=== PATIENT | female | born 1990 | race Caucasian/White ===

== ENCOUNTER 2021-06-16 05:12 | Inpatient (IN) | payer MEDICAID, SELFPAY ==
[2021-06-16] VITALS (66 sets, daily range): BP systolic 94–150; BP diastolic 49–93; PULSE 78–123; RESP 15–17; TEMP 36–37.1; O2SAT 90–100; BMI 46.1
[2021-06-16 05:14] LABS: Basophils % 0.2 %; Eosinophils % 0.3 %; Hematocrit 32.8 % (37.0-47.0); Hemoglobin 10.4 g/dL (11.5-15.3); Lymphocytes % 16.1 %; Mean Corpuscular HGB Conc 31.7 g/dL (30.0-36.0); Mean Corpuscular Hemoglobin 26.1 pg (28.0-34.0); Mean Corpuscular Volume 82.4 fl (81-99); Mean Platelet Volume 11.4 fL (7.4-10.4); Monocytes # 0.9 10^3/uL (0.2-0.9); Monocytes % 7.5 %; Neutrophils # 9.49 10^3/uL (1.8-7.7); Neutrophils % 75.5 %; Nucleated Red Blood Cells % 0 %; Platelet Count 292 10^3/cmm (130-400); Red Blood Count 3.98 10^6/uL (4.1-5.3); Red Cell Distribution Width 13.6 % (12.1-15.1); White Blood Count 12.6 10^3/uL (4.0-10.0)
[2021-06-16] MEDS: lactated ringers 1,000 ML 999 ML IV (05:22)
[2021-06-16 05:24] LABS: Amphetamines Screen Urine Negative (Negative); Barbiturates Screen Urine Negative (Negative); Benzodiazepines Screen Urine Negative (Negative); Cocaine Screen Urine Negative (Negative); Opiate Screen Urine Negative (Negative); PCP Screen Urine Negative (Negative); THC Screen Urine Negative (Negative)
[2021-06-16 05:30] LABS: Actim Prom Positive
[2021-06-16] MEDS: fentaNYL 50 mcg/mL INJ 2mL IVP (05:53)
--- NOTE | 2021-06-16 07:13 | P.ANESASSM_ITS ---
Pre-Anesthetic Assessment Pre-Anesthetic Assessment: Height/Weight: Height 1.68 m Weight 129.727 kg Temp Pulse Resp BP Pulse Ox 97.3 F L 84 15 117/60 100 06/16/21 04:13 06/16/21 07:11 06/16/21 05:53 06/16/21 07:11 06/16/21 07:09 Preop Diagnosis: IUP Proposed Procedure: epidural Familial anesthetic complications: None Social: Social History: No alcohol and No tobacco Exam: Pre-Anes Outpt Exam: alert, oriented x 3, clear to auscultation bilaterally and regular rate & rhythm Airway: Cervical ROM: WNL MP: 3 Dentition: Chipped Metabolic: Metabolic: Morbid obesity Anesthetic Plan: ASA status: 3 Anesthesia: Regional (specify below) Risk of > 500 ml blood loss (7ml/kg in children): No Meds/Allergies Current Medications: Current Medications Generic Name Dose Route Start Last Admin Trade Name Freq PRN Reason Stop Dose Admin Fentanyl 25 - 100 mcg 06/16/21 05:03 06/16/21 05:53 Fentanyl 50 Mcg/ Ml Inj 2ml IVP 25 mcg Q1H PRN Administration SEVERE PAIN Lactated Ringer's 1,000 mls @ 999 m ls/hr 06/16/21 05:06 06/16/21 05:22 Lactated Ringers IV 999 mls/hr .Q1H1M PRN Administration See label comment s PFSH Anesthesia Female Reproductive History: : 4 Data Anesthesia CBC & Chem 7: 06/16/21 04:58 Other Labs: Laboratory Results - last 48 hr 06/16/21 06/16/21 06/16/21 04:37 04:58 04:58 WBC 12.6 H RBC 3.98 L Hgb 10.4 L Hct 32.8 L MCV 82.4 MCH 26.1 L MCHC 31.7 RDW 13.6 Plt Count 292 MPV 11.4 H Neut % (Auto) 75.5 Lymph % (Auto) 16.1 [place] % (Auto) 7.5 Eos % (Auto) 0.3 Baso % (Auto) 0.2 Neut # (Auto) 9.49 H Lymph # (Auto) 2.0 [place] # (Auto) 0.9 Eos # (Auto) 0.0 Baso # (Auto) 0.0 Nucleated RBC % (auto) 0 Nucleated RBCs # 0.0 Insulin-like GF I Positive Urine Opiates Screen Negative Ur Barbiturates Screen Negative Ur Phencyclidine Scrn Negative Ur Amphetamines Screen Negative U Benzodiazepines Scrn Negative Urine Cocaine Screen Negative U Marijuana (THC) Screen Negative Cardiac Studies: No Data to Display
--- NOTE | 2021-06-16 07:14 | ANES.PROC ---
Anesthesia Procedures Procedure/Date: 06/16/21 Epidural: Time Out Performed: Yes Consents Signed: Procedure Consent, NPO Consent and No Consent Needed Consent: requested by attending/covering physician, from patient, risks and benefits reviewed and patient agrees to proceed Lumbar Level: L3-L4 Epidural position: sitting Epidural procedure: sterile prep of area, 1% lidocaine to numb the area, 18 g needle, negative for paresthesia passed, neg for paresthesia, test dose given, 1.5% xylocaine 1:200k epi (5), 0.2% Ropivacaine bolus ml (5), placed PCEA, no systemic response, sterile dressing applied, L.U.D. no apparent complications and 0.2% Ropiavacaine @ mls/hr (13) Additional Comments: JEREMY at 9 cm, pain in hip with threading of catheter. Threaded to 14 cm. No pain with injection. Contraction Pain decreased from 10/10 to 4/10 with first post-epidural contraction. L leg heavier and number than R, still feeling some pressure in RLQ, but states very maneagable.
[2021-06-16] MEDS: dextrose 5%-lactated ringers 1,000 ML 125 ML IV (07:47)
[2021-06-16] MEDS: oxytocin 30 UNIT/500 ML BAG 600 UNIT IV (08:41)
--- NOTE | 2021-06-16 09:04 | PM.OPHPUD ---
Labor & Delivery H&P Update Date of Procedure: June 16, 2021 Date H&P Performed: 06/15/21 H&P update information: I have reviewed H&P completed within last 30 days, I have examined patient prior to procedure and Changes to prior documentation as noted here Changes to previous documentation: Cervix is 3 cm. Admission Diagnosis: Preop diagnosis: IUP Related Problem List Diagnoses (1) 38 weeks gestation of : (2) Vaginal bleeding: (3) Active labor at term:
--- NOTE | 2021-06-16 09:06 | PM.DELIVERY ---
Delivery Note: Date of delivery: June 16, 2021 Pre-delivery diagnoses: 1. 30-year-old 4 para 2-0-1-2 at 38 weeks and 4 days estimated gestational age 2. Vaginal bleeding 3. Active labor Post-delivery diagnoses: Status post spontaneous vaginal delivery Op report anesthesia: Epidural Estimated blood loss (mL): 100 Pre-Delivery Course: The patient arrived at the hospital the morning of delivery complaining of vaginal bleeding and contractions. Upon arrival at the hospital she was noted to have some spotting. Her cervix was noted to be making change. An epidural was placed. An amniotomy was performed. The patient progressed to complete without difficulty. Her been remarkable for moving from [place] and transferring to [facility] at the beginning of the third trimester. She is rubella nonimmune her GBS status is negative. She failed her 1 hour glucose test but passed her 3-hour glucose test. Her blood type was O+. The remainder of her labs were within normal limits. Delivery: DELIVERY: The patient progressed to complete without difficulty. She delivered a female with a weight of 7 pounds 5 ounces with Apgars of 9, 9. The baby was delivered from the MIL position and placed on the mother's abdomen. The cord was then clamped and cut 1 minute after delivery. There was no nuchal cord. There was no meconium. The placenta and 3 vessel cord were delivered intact shortly thereafter. The perineum and vaginal vault were carefully examined. No lacerations were noted. Both the mother and the baby were in stable condition. 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
[2021-06-16] MEDS: lanolin oint 7 gm 1 APPLIC TOPICAL (09:50)
[2021-06-16] MEDS: ibuprofen 800 mg tablet PO ×3 (09:50→21:02)
[2021-06-16] MEDS: benzocaine-menthol 78 gm Canister 1 SPRAY TOPICAL (09:50)
[2021-06-16] MEDS: escitalopram 10 mg Tablet PO (12:39)
[2021-06-16] MEDS: docusate sodium 100 mg Capsule PO (18:00)
[2021-06-16 21:16] LABS: Hematocrit 28.6 % (37.0-47.0); Hemoglobin 9.1 g/dL (11.5-15.3); Mean Corpuscular HGB Conc 31.8 g/dL (30.0-36.0); Mean Corpuscular Hemoglobin 26.1 pg (28.0-34.0); Mean Corpuscular Volume 81.9 fl (81-99); Mean Platelet Volume 11.2 fL (7.4-10.4); Platelet Count 246 10^3/cmm (130-400); Red Blood Count 3.49 10^6/uL (4.1-5.3); Red Cell Distribution Width 13.5 % (12.1-15.1); White Blood Count 10.3 10^3/uL (4.0-10.0)
[2021-06-17 03:18] VITALS: BP 132/87; PULSE 84; RESP 16; TEMP 36.9; O2SAT 98
--- NOTE | 2021-06-17 07:49 | ANE.PACU2 ---
Inpatient post-anesthesia follow up: Airway intact: Yes Vital signs: Temperature 98.5 F Pulse Rate 84 Respiratory Rate 16 Blood Pressure 132/87 Pulse Oximetry 98 Oxygen Delivery Me thod Room Air Oxygen Flow Rate Fraction of Inspir ed Oxygen Hydration adequate: Yes Nausea and vomiting: No Pain level: 2 Mental status: Baseline
--- NOTE | 2021-06-17 09:40 | PM.OBGYDC ---
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 She was found to be in active labor. An epidural was placed. She progressed to complete and had an unremarkable delivery of a healthy appearing term female infant. Her course was also relatively unremarkable. Initially she breast-fed well. During the night, her infant was irritable, and she elected to change to bottlefeeding. Her pain was well controlled. She was noted to have a productive cough with green mucus. She also did have a infected tooth as well. Otherwise her bleeding was within normal limits. Her pain was well controlled. Information Peripartum Data: Infant Delivery Method: Vaginal Physical Exam Narrative: EXAM NARRATIVE: The patient is alert. She appears comfortable. Her heart has a regular rate and rhythm with no murmurs appreciated. Lungs are clear to auscultation bilaterally. Her fundus is firm and below the umbilicus. Urinary Catheter Management^: [place]: Cath Placed During This Visit: yes, but has since been removed by the nurse Reason for Continuing Indwelling Catheter: Required Immobilization for Trauma or Surgery or Anesthesia Urinary Catheter Date of Insertion: 06/16/21 Urinary Catheter Time of Insertion: 07:35 Date Urinary Catheter Removed: 06/16/21 Time Urinary Catheter Discontinued: 07:50 Discharge Data Data Completed and Pending: Labs from last 24 hours 06/16/21 21:07 WBC 10.3 H RBC 3.49 L Hgb 9.1 L Hct 28.6 L MCV 81.9 MCH 26.1 L MCHC 31.8 RDW 13.5 Plt Count 246 MPV 11.2 H Vitals: Last Vital Signs Temp 98.5 F 06/17/21 03:18 Pulse 84 06/17/21 03:18 Resp 16 06/17/21 03:18 BP 132/87 06/17/21 03:18 Pulse Ox 98 06/17/21 03:18 Discharge Plan Discharge Patient Disposition: Home Condition: Stable Prescriptions: New ibuprofen 800 mg Tablet 800 mg PO TID Qty: 45 RF: 0 hydrocodone-acetaminophen 5-325 mg Tablet 1 tab PO BID PRN (Reason: Moderate To Severe Pain) Qty: 10 RF: 0 amoxicillin-pot clavulanate 1,000-62.5 mg tablet extended release 12 hr 1 tab PO BID Qty: 20 RF: 0 Continued Celexa 10 mg Tablet 10 mg PO DAILY RF: 0 Discontinued 1 mg Tablet 1 tab PO DAILY RF: 0 ibuprofen 200 mg PO PRN PRN (Reason: Pain) RF: 0 Discharge Orders: Discharge Order (Routine); Ordered 06/17/21 Ordered By: Rome Garcia Referrals: Griffin Marquez MD [Physician] - 2 weeks (laparoscopic tubal ligation consult) Rome Garcia MD [Physician] - 6 Weeks Discharge Diet: Usual diet Discharge Activity: Limit activity as instructed Patient Instructions: Iron Supplements (By mouth), Vitamins (By mouth), Lanolin (On the skin), Expression, Collection and Storage of Breast Milk (DC), and Nipple Soreness (DC), and Breast Engorgement (GEN), How to Increase Your Milk Supply (GEN), Bleeding (GEN), Breast Care for the Mother (GEN), OB Discharge Report, OB Food/Drug Interaction Guide, Opioid Safety, OB Home Care, OB Vaginal Deliveries, Abnormal Bleeding Discharge 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
[2021-06-17] MEDS: docusate sodium 100 mg Capsule PO (10:20)
[2021-06-17] MEDS: prenatal vitamin Capsule 1 CAP PO (10:20)
[2021-06-17] MEDS: ibuprofen 800 mg tablet PO (10:20)
[2021-06-17 13:40] VITALS: BP 133/90; PULSE 83; RESP 16; TEMP 36.9; O2SAT 96
[2021-06-17 14:02] VITALS: BP 133/90; PULSE 83; RESP 16; TEMP 36.9; O2SAT 96
== END 2021-06-17 14:00 | disposition home or self-care (01) | DRG 807 ==
LOC: OPOB 05:14 → OBGYN 05:14
PROVIDERS: Admitting Provider Family Medicine; Visit Provider Family Medicine
DX: O99.52 Diseases of the respiratory system complicating childbirth (principal); Z37.0 Single live birth; J06.9 Acute upper respiratory infection, unspecified; Z3A.38 38 weeks gestation of pregnancy; O99.892 Other specified diseases and conditions complicating childbirth; K08.89 Other specified disorders of teeth and supporting structures
CPT/HCPCS: 12345; 36415; 51702; 59025; 59409; 80306; 84112; 85025; 85027; 96374; 99211; J2795; J3010

== ENCOUNTER 2021-11-19 23:44 | Emergency (ER) | payer MEDICAID, SELFPAY ==
[2021-11-19 23:53] VITALS: PULSE 115; RESP 18; TEMP 36.9; O2SAT 98; BMI 45.1
--- NOTE | 2021-11-20 00:29 | W.ED.NAVMDI ---
Documented by User: NELL Jason 11/20/21 15:22 HPI - Nausea/Vomiting/Diarrhea General: Chief complaint: Abdominal Pain Stated complaint: ABD PAIN Time Seen by Provider: 11/20/21 00:01 History of Present Illness: Patient is a 30-year-old female that is approximately 9 weeks gestation comes to the ED with nausea vomiting diarrhea. Symptoms started couple hours before arrival to ED. Patient says she ate dinner at 6 PM and symptoms occurred couple hours after that. Her and child ate same meal and did not have any symptoms afterwards. She has had multiple episodes of emesis and diarrhea since start of symptoms a couple hours ago. She also reports having some periumbilical and right side and RUQ. Denies any fevers. denies any dysuria, hematuria, discharge or vaginal bleeding. Patient still has gallbladder and appendix. Associated nausea: Yes Associated symtoms: Reports nausea; Denies change in vision, chest pain, dysuria, fatigue, headache(s) or palpitations Review of Systems Const: Denies: fever(s), chills or fatigue Eyes: Denies: change in vision or eye discomfort ENMT: Denies: throat pain, odynophagia, nasal discharge or nasal congestion Card: Denies: chest pain, palpitations, edema, swelling of feet/ankles, dyspnea on exertion or orthopnea Resp: Denies: dyspnea, productive cough or non-productive cough GI: Reports: abdominal pain, nausea, vomiting and diarrhea; Denies: constipation or hematochezia : Denies: flank pain, dysuria, hematuria, vaginal bleeding or vaginal discharge Musc: Denies: neck pain, back pain or extremity swelling Skin/Breast: Denies: rash or new lesions Neuro: Denies: headache(s), numbness in extremities or weakness in extremities PFS ED PFSH: Medical History No pertinent family history No pertinent past medical history Physical Exam Const: COMMON NORMALS: patient oriented x3 and alert GENERAL APPEARANCE: cooperative NUTRITIONAL APPEARANCE: obese HENMT: COMMON NORMALS: normocephalic HEAD & SCALP: normocephalic MOUTH: Normal oral and palatal mucosa present THROAT: posterior oropharynx normal and uvula midline Neck/C-Spine: COMMON NORMALS: supple GENERAL: Yes normal visual inspection Resp: COMMON NORMALS: normal respiratory effort, No retractions, No use of accessory muscles and clear to auscultation bilaterally AUSCULTATION: clear to auscultation bilaterally Cardio: COMMON NORMALS: regular rate, regular rhythm, S1 normal heart sound present, S2 normal heart sound present, No gallops present (Cardio), No clicks present (Cardio), No murmurs present (Cardio) and Peripheral pulses 2+ throughout RATE: regular rate RHYTHM: regular rhythm HEART SOUNDS: S1 normal heart sound present and S2 normal heart sound present PERIPHERAL PULSES: Peripheral pulses 2+ throughout GI: COMMON NORMALS: Normal to inspection, nondistended, normoactive bowel sounds present, Soft to palpation and no masses PALPATION: Yes Soft to palpation and Yes Tenderness to palpation present (GI) Details: RUQ and other (periumbilical/epigastric) : COMMON NORMALS: Yes no CVA tenderness BLADDER/KIDNEY EXAM: Yes no CVA tenderness Back/Pelvis: COMMON NORMALS: no CVA tenderness Extremity: COMMON NORMALS: normal to inspection and no pedal edema Neuro: COMMON NORMALS: patient oriented x3 SENSORIUM/ORIENTATION: Yes alert GAIT: Yes Normal gait present Skin: GENERAL SKIN EXAM: dry skin Course Vital Signs: Vital signs: Vital Signs Temperature 98.4 F 11/19/21 23:53 Pulse Rate 97 11/20/21 05:12 Respiratory Rate 16 11/20/21 05:12 Blood Pressure 165/59 11/20/21 05:12 Pulse Oximetry 97 11/20/21 05:12 MDM - Nausea/Vomiting/Diarrhea Medical Decision Making Patient is a 9 weeks 30-year-old female comes to the ED with cute onset of nausea, vomiting, diarrhea and abdominal pain. Abdominal pain located in the periumbilical and right upper quadrant of the abdomen. Symptoms started couple hours prior to arrival. Denies any fever, dysuria, hematuria, vaginal bleeding or vaginal discharge. Vitals are stable patient is afebrile. Exam of patient shows some right upper quadrant tenderness along with periumbilical tenderness. White blood cell count 18 and the rest of CBC, CMP, lipase and UA were unremarkable. hCG quant 71,502. OB ultrasound showed single living intrauterine fetus measuring at 8 weeks no other acute findings. Patient was given 2 L of IV fluids nausea meds and her symptoms were improved and controlled here in the ED. At the end of my shift a handed patient off to Dr. Narvaez. I told him about patient case and that I have an ultrasound of the gallbladder ordered and pending results. Dr. Narvaez took over care of pt at 0330 and will make decision on discharge plan of patient after ultrasound gallbladder report comes back. Lab Data I reviewed the patient's lab results. : 11/20/21 00:10 11/20/21 00:10 Radiology Impressions Ultrasound 11/20/21 00:33 IMPRESSION: 1. Single living intrauterine fetus, 8 weeks, 4 days estimated age. 2. Other details discussed above. Gallbladder Ultrasound 11/20/21 02:49 IMPRESSION: 1. No cholelithiasis or biliary tree dilation. 2. Other findings discussed above. Laboratory Results WBC 18.0 10^3/uL (4.0-10.0) H 11/20/21 00:10 RBC 5.13 10^6/uL (4.1-5.3) 11/20/21 00:10 Hgb 13.6 g/dL (11.5-15.3) 11/20/21 00:10 Hct 41.3 % (37.0-47.0) 11/20/21 00:10 MCV 80.5 fl (81-99) L 11/20/21 00:10 MCH 26.5 pg (28.0-34.0) L 11/20/21 00:10 MCHC 32.9 g/dL (30.0-36.0) 11/20/21 00:10 RDW 14.1 % (12.1-15.1) 11/20/21 00:10 Plt Count 485 10^3/cmm (130-400) H 11/20/21 00:10 MPV 10.4 fL (7.4-10.4) 11/20/21 00:10 Neut % (Auto) 85.3 % 11/20/21 00:10 Lymph % (Auto) 7.6 % 11/20/21 00:10 Harding % (Auto) 6.3 % 11/20/21 00:10 Eos % (Auto) 0.2 % 11/20/21 00:10 Baso % (Auto) 0.2 % 11/20/21 00:10 Neut # (Auto) 15.39 10^3/uL (1.8-7.7) H 11/20/21 00:10 Lymph # (Auto) 1.4 10^3/uL (0.8-4.8) 11/20/21 00:10 [place] # (Auto) 1.1 10^3/uL (0.2-0.9) H 11/20/21 00:10 Eos # (Auto) 0.0 10^3/uL (0.0-0.8) 11/20/21 00:10 Baso # (Auto) 0.0 10^3/uL (0.0-0.1) 11/20/21 00:10 Nucleated RBC % (auto) 0 % 11/20/21 00:10 Nucleated RBCs # 0.0 /100WBC 11/20/21 00:10 Sodium 134 mmol/L (136-145) L 11/20/21 00:10 Potassium 4.2 mmol/L (3.5-5.1) 11/20/21 00:10 Chloride 100 mmol/L (98-107) 11/20/21 00:10 Carbon Dioxide 20 mmol/L (22-29) L 11/20/21 00:10 Anion Gap 18.2 (5-19) 11/20/21 00:10 BUN 11 mg/dL (6-20) 11/20/21 00:10 Creatinine 0.8 mg/dL (0.5-0.9) 11/20/21 00:10 GFR Calculation 84.8 mL/min (90-130) L 11/20/21 00:10 Glucose 146 mg/dL (65-115) H 11/20/21 00:10 Calculated Osmolality 280 mOsm/kg (285-295) L 11/20/21 00:10 Calcium 8.7 mg/dL (8.5-10.5) 11/20/21 00:10 Total Bilirubin 0.3 mg/dL (0.15-1.2) 11/20/21 00:10 AST 19 U/L (0-32) 11/20/21 00:10 ALT 9 U/L (0-33) 11/20/21 00:10 Alkaline Phosphatase 94 IU/L (35-105) 11/20/21 00:10 Total Protein 7.6 g/dL (6.6-8.7) 11/20/21 00:10 Albumin 4.3 g/dL (3.5-5.2) 11/20/21 00:10 Globulin 3.3 g/dL (1.3-4.6) 11/20/21 00:10 Lipase 38 U/L (13-60) 11/20/21 00:10 Ser , Semi-Qnt 85722.00 mIU/mL 11/20/21 00:10 Urine Color Yellow (Yellow) 11/20/21 00:10 Urine Appearance Hazy (CLEAR) A 11/20/21 00:10 Urine pH 5 (5-7) 11/20/21 00:10 Ur Specific [place] 1.025 (1.005-1.030) 11/20/21 00:10 Urine Protein Neg (Negative) 11/20/21 00:10 Urine Glucose (UA) Norm (Normal) 11/20/21 00:10 Urine Ketones Negative (Negative) 11/20/21 00:10 Urine Blood Neg (Negative) 11/20/21 00:10 Urine Nitrate Negative (Negative) 11/20/21 00:10 Urine Bilirubin 1+ (Negative) H 11/20/21 00:10 Urine Urobilinogen Norm mg/dL (Negative) 11/20/21 00:10 Ur Leukocyte Esterase 1+ (Negative) H 11/20/21 00:10 Urine RBC 0-4 /hpf (0-2) H 11/20/21 00:10 Urine WBC 15-25 /hpf (0-5) H 11/20/21 00:10 Ur Squamous Epith Cells 25-40 /hpf (0-5) H 11/20/21 00:10 Amorphous Sediment Not Reportable 11/20/21 00:10 Urine Bacteria 2+ /hpf (NONE) H 11/20/21 00:10 Urine Mucus 2+ /hpf 11/20/21 00:10 Discharge Plan Discharge Patient Disposition: Home Clinical Impression: Abdominal pain affecting , Nausea vomiting and diarrhea, Leukocytosis, Dehydration Condition: Stable Prescriptions: New pyridoxine (vitamin B6) 25 mg tablet 25 mg PO TID Qty: 30 0RF doxylamine succinate 25 mg tablet 25 mg PO Q8H PRN (Reason: nausea and vomiting) Qty: 30 0RF metoclopramide HCl 10 mg tablet,disintegrating 10 mg PO TID PRN (Reason: nausea and vomiting) Qty: 14 0RF No Action Celexa 10 mg Tablet 10 mg PO DAILY 0RF ibuprofen 800 mg Tablet 800 mg PO TID Qty: 45 0RF hydrocodone-acetaminophen 5-325 mg Tablet 1 tab PO BID PRN (Reason: Moderate To Severe Pain) Qty: 10 0RF amoxicillin-pot clavulanate 1,000-62.5 mg tablet extended release 12 hr 1 tab PO BID Qty: 20 0RF Discharge Orders: Discharge ED (Routine); Ordered 11/20/21 Ordered By: Meño Narvaez Discharge Diet: Advance as tolerated and Clear Liquid Discharge Activity: Increase activity as tolerated Patient Instructions: Nausea and Vomiting in (ED), Abdominal Pain (ED) Activity Restrictions/Additional Instructions: Thank you for visiting the emergency department. You were seen and evaluated for abdominal pain with nausea and vomiting and diarrhea during . The exact cause of your symptoms is unclear. Please follow-up with your primary care provider and inbound call center representative in the next few days. I recommend repeat urinalysis by your inbound call center representative as there was squamous epithelial cell contamination which voids ability to interpret your urinalysis here. Please return to the emergency department for worsening symptoms or anything else that you are concerned about and feel needs emergency department evaluation. Sign Out Sign Out Data: Patient Sign Out occurred on 11/20/21 at 03:37. Patient's care was discussed, and care was transferred from to Meño Narvaez MD. Coding Level of Care Code ED Drying Equipment Operator for Chg Fwd Exam Comprehensive Documented by User: Meño Narvaez MD 11/25/21 02:53 HPI - Nausea/Vomiting/Diarrhea General: Chief complaint: Abdominal Pain Stated complaint: ABD PAIN Time Seen by Provider: 11/20/21 00:01 REPLACED BY [facility] ED PFSH: Medical History No pertinent family history No pertinent past medical history Course Vital Signs: Vital signs: Vital Signs Temperature 98.4 F 11/19/21 23:53 Pulse Rate 97 11/20/21 05:12 Respiratory Rate 16 11/20/21 05:12 Blood Pressure 165/59 11/20/21 05:12 Pulse Oximetry 97 11/20/21 05:12 MDM - Nausea/Vomiting/Diarrhea Medical Decision Making Patient is a 9 weeks 30-year-old female comes to the ED with cute onset of nausea, vomiting, diarrhea and abdominal pain. Abdominal pain located in the periumbilical and right upper quadrant of the abdomen. Symptoms started couple hours prior to arrival. Denies any fever, dysuria, hematuria, vaginal bleeding or vaginal discharge. Vitals are stable patient is afebrile. Exam of patient shows some right upper quadrant tenderness along with periumbilical tenderness. White blood cell count 18 and the rest of CBC, CMP, lipase and UA were unremarkable. hCG quant 71,502. OB ultrasound showed single living intrauterine fetus measuring at 8 weeks no other acute findings. Patient was given 2 L of IV fluids nausea meds and her symptoms were improved and controlled here in the ED. At the end of my shift a handed patient off to Dr. Narvaez. I told him about patient case and that I have an ultrasound of the gallbladder ordered and pending results. Dr. Narvaez took over care of pt at 0330 and will make decision on discharge plan of patient after ultrasound gallbladder report comes back. I discussed this case with NELL Jason. I personally saw and evaluated the patient. I reperformed herndon portions of E/M. I have reviewed documentation. I discussed results of ED evaluation with the patient including offering further imaging with MRI versus close watching with strict return precautions and outpatient follow-up. Patient comfortable foregoing MRI at this time in favor of outpatient follow-up. Return precautions given. Patient verbalized understanding and felt safe for discharge. Meño Narvaez MD Emergency Medicine Lab Data : 11/20/21 00:10 11/20/21 00:10 Radiology Impressions Ultrasound 11/20/21 00:33 IMPRESSION: 1. Single living intrauterine fetus, 8 weeks, 4 days estimated age. 2. Other details discussed above. Gallbladder Ultrasound 11/20/21 02:49 IMPRESSION: 1. No cholelithiasis or biliary tree dilation. 2. Other findings discussed above. Laboratory Results WBC 18.0 10^3/uL (4.0-10.0) H 11/20/21 00:10 RBC 5.13 10^6/uL (4.1-5.3) 11/20/21 00:10 Hgb 13.6 g/dL (11.5-15.3) 11/20/21 00:10 Hct 41.3 % (37.0-47.0) 11/20/21 00:10 MCV 80.5 fl (81-99) L 11/20/21 00:10 MCH 26.5 pg (28.0-34.0) L 11/20/21 00:10 MCHC 32.9 g/dL (30.0-36.0) 11/20/21 00:10 RDW 14.1 % (12.1-15.1) 11/20/21 00:10 Plt Count 485 10^3/cmm (130-400) H 11/20/21 00:10 MPV 10.4 fL (7.4-10.4) 11/20/21 00:10 Neut % (Auto) 85.3 % 11/20/21 00:10 Lymph % (Auto) 7.6 % 11/20/21 00:10 Harding % (Auto) 6.3 % 11/20/21 00:10 Eos % (Auto) 0.2 % 11/20/21 00:10 Baso % (Auto) 0.2 % 11/20/21 00:10 Neut # (Auto) 15.39 10^3/uL (1.8-7.7) H 11/20/21 00:10 Lymph # (Auto) 1.4 10^3/uL (0.8-4.8) 11/20/21 00:10 [place] # (Auto) 1.1 10^3/uL (0.2-0.9) H 11/20/21 00:10 Eos # (Auto) 0.0 10^3/uL (0.0-0.8) 11/20/21 00:10 Baso # (Auto) 0.0 10^3/uL (0.0-0.1) 11/20/21 00:10 Nucleated RBC % (auto) 0 % 11/20/21 00:10 Nucleated RBCs # 0.0 /100WBC 11/20/21 00:10 Sodium 134 mmol/L (136-145) L 11/20/21 00:10 Potassium 4.2 mmol/L (3.5-5.1) 11/20/21 00:10 Chloride 100 mmol/L (98-107) 11/20/21 00:10 Carbon Dioxide 20 mmol/L (22-29) L 11/20/21 00:10 Anion Gap 18.2 (5-19) 11/20/21 00:10 BUN 11 mg/dL (6-20) 11/20/21 00:10 Creatinine 0.8 mg/dL (0.5-0.9) 11/20/21 00:10 GFR Calculation 84.8 mL/min (90-130) L 11/20/21 00:10 Glucose 146 mg/dL (65-115) H 11/20/21 00:10 Calculated Osmolality 280 mOsm/kg (285-295) L 11/20/21 00:10 Calcium 8.7 mg/dL (8.5-10.5) 11/20/21 00:10 Total Bilirubin 0.3 mg/dL (0.15-1.2) 11/20/21 00:10 AST 19 U/L (0-32) 11/20/21 00:10 ALT 9 U/L (0-33) 11/20/21 00:10 Alkaline Phosphatase 94 IU/L (35-105) 11/20/21 00:10 Total Protein 7.6 g/dL (6.6-8.7) 11/20/21 00:10 Albumin 4.3 g/dL (3.5-5.2) 11/20/21 00:10 Globulin 3.3 g/dL (1.3-4.6) 11/20/21 00:10 Lipase 38 U/L (13-60) 11/20/21 00:10 Ser , Semi-Qnt 78936.00 mIU/mL 11/20/21 00:10 Urine Color Yellow (Yellow) 11/20/21 00:10 Urine Appearance Hazy (CLEAR) A 11/20/21 00:10 Urine pH 5 (5-7) 11/20/21 00:10 Ur Specific [place] 1.025 (1.005-1.030) 11/20/21 00:10 Urine Protein Neg (Negative) 11/20/21 00:10 Urine Glucose (UA) Norm (Normal) 11/20/21 00:10 Urine Ketones Negative (Negative) 11/20/21 00:10 Urine Blood Neg (Negative) 11/20/21 00:10 Urine Nitrate Negative (Negative) 11/20/21 00:10 Urine Bilirubin 1+ (Negative) H 11/20/21 00:10 Urine Urobilinogen Norm mg/dL (Negative) 11/20/21 00:10 Ur Leukocyte Esterase 1+ (Negative) H 11/20/21 00:10 Urine RBC 0-4 /hpf (0-2) H 11/20/21 00:10 Urine WBC 15-25 /hpf (0-5) H 11/20/21 00:10 Ur Squamous Epith Cells 25-40 /hpf (0-5) H 11/20/21 00:10 Amorphous Sediment Not Reportable 11/20/21 00:10 Urine Bacteria 2+ /hpf (NONE) H 11/20/21 00:10 Urine Mucus 2+ /hpf 11/20/21 00:10 Discharge Plan Discharge Patient Disposition: Home Clinical Impression: Abdominal pain affecting , Nausea vomiting and diarrhea, Leukocytosis, Dehydration Condition: Stable Prescriptions: New pyridoxine (vitamin B6) 25 mg tablet 25 mg PO TID Qty: 30 0RF doxylamine succinate 25 mg tablet 25 mg PO Q8H PRN (Reason: nausea and vomiting) Qty: 30 0RF metoclopramide HCl 10 mg tablet,disintegrating 10 mg PO TID PRN (Reason: nausea and vomiting) Qty: 14 0RF No Action Celexa 10 mg Tablet 10 mg PO DAILY 0RF ibuprofen 800 mg Tablet 800 mg PO TID Qty: 45 0RF hydrocodone-acetaminophen 5-325 mg Tablet 1 tab PO BID PRN (Reason: Moderate To Severe Pain) Qty: 10 0RF amoxicillin-pot clavulanate 1,000-62.5 mg tablet extended release 12 hr 1 tab PO BID Qty: 20 0RF Discharge Orders: Discharge ED (Routine); Ordered 11/20/21 Ordered By: Meño Narvaez Discharge Diet: Advance as tolerated and Clear Liquid Discharge Activity: Increase activity as tolerated Patient Instructions: Nausea and Vomiting in (ED), Abdominal Pain (ED) Activity Restrictions/Additional Instructions: Thank you for visiting the emergency department. You were seen and evaluated for abdominal pain with nausea and vomiting and diarrhea during . The exact cause of your symptoms is unclear. Please follow-up with your primary care provider and inbound call center representative in the next few days. I recommend repeat urinalysis by your inbound call center representative as there was squamous epithelial cell contamination which voids ability to interpret your urinalysis here. Please return to the emergency department for worsening symptoms or anything else that you are concerned about and feel needs emergency department evaluation. Sign Out Sign Out Data: Patient Sign Out occurred on 11/20/21 at 03:37. Patient's care was discussed, and care was transferred from to Meño Narvaez MD. Coding Level of Care Code ED Drying Equipment Operator for Chg Fwd Exam Comprehensive
--- NOTE | 2021-11-20 00:33 | USR_ITS ---
PROCEDURE INFORMATION: Exam: US First Trimester, Transabdominal Exam date and time: 11/20/2021 1:11 AM Age: 30 years old Clinical indication: complicated by abdominal or pelvic pain; Lower; First trimester (<14 weeks 0 days); Gestational age or lmp: Approx 8w 4d; ; Additional info: 9 weeks preg, n/v/d and lower abdominal pain TECHNIQUE: Imaging protocol: Real-time transabdominal obstetrical ultrasound of the maternal pelvis and a first trimester , less than 14 weeks 0 days, with image documentation. COMPARISON: No relevant prior studies available. FINDINGS: Single living intrauterine fetus. [place] rump length of 2.0 estimates age at 8 weeks, 4 days. heart activity documented by the technologist, 176 bpm. Amniotic fluid appears adequate for gestation. No definite/significant uterine abnormality. Neither maternal ovary is definitely visualized at this time. Adnexal regions otherwise appear essentially unremarkable on the provided images. The urinary bladder was not completely evaluated/imaged at this time. Patient reportedly declined endovaginal scanning at this time. US/US OB <= 14 weeks fetus [id number] IMPRESSION: 1. Single living intrauterine fetus, 8 weeks, 4 days estimated age. 2. Other details discussed above.
[2021-11-20 00:35] LABS: Basophils % 0.2 %; Eosinophils % 0.2 %; Hematocrit 41.3 % (37.0-47.0); Hemoglobin 13.6 g/dL (11.5-15.3); Lymphocytes # 1.4 10^3/uL (0.8-4.8); Lymphocytes % 7.6 %; Mean Corpuscular HGB Conc 32.9 g/dL (30.0-36.0); Mean Corpuscular Hemoglobin 26.5 pg (28.0-34.0); Mean Corpuscular Volume 80.5 fl (81-99); Mean Platelet Volume 10.4 fL (7.4-10.4); Monocytes # 1.1 10^3/uL (0.2-0.9); Monocytes % 6.3 %; Neutrophils # 15.39 10^3/uL (1.8-7.7); Neutrophils % 85.3 %; Nucleated Red Blood Cells % 0 %; Platelet Count 485 10^3/cmm (130-400); Red Blood Count 5.13 10^6/uL (4.1-5.3); Red Cell Distribution Width 14.1 % (12.1-15.1)
[2021-11-20 00:37] VITALS: BP 124/70; PULSE 70; RESP 16; O2SAT 98
[2021-11-20] MEDS: ondansetron 2 mg/ML SDV 2 mL 4 MG IVP (00:37)
[2021-11-20] MEDS: sodium chloride 0.9% 1,000 ML 999 ML IV ×2 (00:37→03:20)
[2021-11-20 00:53] LABS: Add Urine Microscopic? YES; Bilirubin Urine 1+ (Negative); Blood Urine Neg (Negative); Glucose Urine UA Norm (Normal); Ketones Urine Negative (Negative); Leukocyte Esterase Urine 1+ (Negative); Nitrate Urine Negative (Negative); Protein Urine Neg (Negative); Specific Gravity, Urine 1.025 (1.005-1.030); Urine Appearance Hazy (CLEAR); Urine Color Yellow (Yellow); Urobilinogen Urine Norm (Negative); pH Urine 5 (5-7)
[2021-11-20 00:55] LABS: Add Urine Culture? No; Bacteria Urine 2+ /hpf; Mucus Urine 2+ /hpf; RBC Urine 0-4 /hpf (0-2); Squamous Epithelial Cell Urine 25-40 /hpf (0-5); WBC Urine 15-25 /hpf (0-5)
[2021-11-20 01:03] LABS: Alanine Aminotransferase 9 U/L (0-33); Albumin Level 4.3 g/dL (3.5-5.2); Alkaline Phosphatase 94 IU/L (35-105); Anion Gap 18.2 (5-19); Aspartate Amino Transferase 19 U/L (0-32); Blood Urea Nitrogen 11 mg/dL (6-20); Calcium 8.7 mg/dL (8.5-10.5); Carbon Dioxide 20 mmol/L (22-29); Chloride 100 mmol/L (98-107); Globulin 3.3 g/dL (1.3-4.6); Glomerular Filtration Rate 84.8 mL/min (90-130); Glucose 146 mg/dL (65-115); Lipase 38 U/L (13-60); Osmolality Calculated 280 mOsm/kg (285-295); Potassium 4.2 mmol/L (3.5-5.1); Sodium 134 mmol/L (136-145); Total Bilirubin 0.3 mg/dL (0.15-1.2); Total Protein 7.6 g/dL (6.6-8.7)
--- NOTE | 2021-11-20 02:49 | USR_ITS ---
PROCEDURE INFORMATION: Exam: US Abdomen, Limited; Right Upper Quadrant Exam date and time: 11/20/2021 2:58 AM Age: 30 years old Clinical indication: Nausea and vomiting; ; Additional info: Ruq pain and n/v TECHNIQUE: Imaging protocol: US abdomen. Real time ultrasound with image documentation. Limited exam focused on the right upper quadrant. COMPARISON: No relevant prior studies available. FINDINGS: Liver: Unremarkable liver, no focal abnormality. Gallbladder: No cholelithiasis. No gallbladder wall thickening or pericholecystic fluid. The gallbladder does not appear abnormally distended at this time. Biliary ducts: No biliary dilation, common duct measures 2.8 mm. Pancreas: Visible pancreas unremarkable. Right kidney: Images of the right kidney show no hydronephrosis. US/US gall bladder [id number] IMPRESSION: 1. No cholelithiasis or biliary tree dilation. 2. Other findings discussed above.
[2021-11-20] MEDS: metoclopramide 5 mg/mL SDV 2 mL 10 MG IVP (03:20)
[2021-11-20 05:12] VITALS: BP 165/59; PULSE 97; RESP 16; O2SAT 97
== END 2021-11-20 05:13 | disposition home or self-care (01) ==
PROVIDERS: Physician Assistant; Emergency Provider Emergency Medicine
DX: O99.891 Other specified diseases and conditions complicating pregnancy (principal); R10.9 Unspecified abdominal pain; R11.2 Nausea with vomiting, unspecified; R19.7 Diarrhea, unspecified; E86.0 Dehydration; O99.111 Other diseases of the blood and blood-forming organs and certain disorders involving the immune mechanism complicating pregnancy, first trimester; D72.829 Elevated white blood cell count, unspecified; Z3A.08 8 weeks gestation of pregnancy
CPT/HCPCS: 76705; 76801; 80053; 81001; 83690; 84702; 85025; 96361; 96374; 96375; 99284; J2405; J2765; J7030

== ENCOUNTER 2022-05-30 19:18 | Outpatient (CLI) | payer MEDICAID, SELFPAY ==
[2022-05-30] VITALS (24 sets, daily range): BP systolic 109–131; BP diastolic 55–67; PULSE 87–126; RESP 16; TEMP 37–37.1; O2SAT 98–100; BMI 39.6
[2022-05-30] MEDS: lactated ringers 1,000 ML 999 ML IV (20:07)
== END 2022-05-30 20:25 | disposition home or self-care (01) ==
LOC: OPOB 19:18 → OBGYN 19:18
PROVIDERS: Visit Provider Family Medicine
DX: O21.8 Other vomiting complicating pregnancy (principal); Z3A.00 Weeks of gestation of pregnancy not specified
CPT/HCPCS: 59025; 99211; J7120

== ENCOUNTER 2022-06-18 09:03 | Inpatient (IN) | payer MEDICAID, SELFPAY ==
[2022-06-18] VITALS (99 sets, daily range): BP systolic 118–153; BP diastolic 58–109; PULSE 34–122; RESP 16–18; TEMP 35.9–36.8; O2SAT 87–100; BMI 43.0
[2022-06-18] MEDS: lactated ringers 1,000 ML 999 ML IV ×2 (04:29→04:55)
[2022-06-18 04:37] LABS: Basophils % 0.2 %; Eosinophils % 0.3 %; Lymphocytes # 1.7 10^3/uL (0.8-4.8); Lymphocytes % 16.9 %; Mean Corpuscular HGB Conc 31.3 g/dL (30.0-36.0); Mean Corpuscular Hemoglobin 24.3 pg (28.0-34.0); Mean Corpuscular Volume 77.7 fl (81-99); Mean Platelet Volume 11.2 fL (7.4-10.4); Monocytes # 0.6 10^3/uL (0.2-0.9); Monocytes % 5.8 %; Neutrophils # 7.88 10^3/uL (1.8-7.7); Neutrophils % 76.4 %; Nucleated Red Blood Cells % 0 %; Platelet Count 314 10^3/cmm (130-400); Red Blood Count 4.12 10^6/uL (4.1-5.3); Red Cell Distribution Width 14.9 % (12.1-15.1); White Blood Count 10.3 10^3/uL (4.0-10.0)
--- NOTE | 2022-06-18 05:13 | P.ANESASSM_ITS ---
Pre-Anesthetic Assessment Height/Weight: Height 1.7 m Weight 124.738 kg Temp Pulse BP O2 Del Method 96.6 F L 106 H 118/77 06/18/22 04:03 06/18/22 03:49 06/18/22 03:49 06/18/22 03:38 Preop Diagnosis: IUP Familial anesthetic complications: none Was Beta Cari taken within 24 hours: N/A Was Clonidine taken within 24 hours: N/A Last Intake: 23:00 Social No alcohol and No tobacco Exam alert, oriented x 3, clear to auscultation bilaterally and regular rate & rhythm Airway Submandibular: within normal limits Cervical ROM: within normal limits Mallampati: Class II Dentition: full Pulmonary None reported CV/HEM None reported None reported Hepatic None reported GI Gastroesophageal Reflux Disease (with ) Metabolic Morbid Obesity Musc/skel Lower Back Pain (with ) Neuropsych Anxiety and Depression Anesthetic Plan ASA status: 2 Anesthesia: MAC Risk of > 500 ml blood loss (7ml/kg in children): No Medications/Allergies Home Medications Medication Instructions Recorded Confirmed Last Taken Type escitalopram oxalate 20 mg tablet 20 mg PO DAILY 05/30/22 06/18/22 06/17/22 15:00 History (Lexapro) Allergies Allergy/AdvReac Type Severity Reaction Status Date / Time No Known Allergies Allergy Verified 05/30/22 19:26 Current Medications Generic Name Dose Route Start Last Admin Trade Name Freq PRN Reason Stop Dose Admin Lactated Ringer's 1,000 mls @ 999 mls/hr 06/18/22 04:18 06/18/22 04:55 Lactated Ringers IV 999 mls/hr .Q1H1M PRN Administration See label comments [facility] Anesthesia Medical History No pertinent family history No pertinent past medical history Female Reproductive History : 5 Data Anesthesia 06/18/22 04:13 Short CBC 06/18/22 Range/Units 04:13 WBC 10.3 H (4.0-10.0) 10^3/uL Hgb 10.0 L (11.5-15.3) g/dL Hct 32.0 L (37.0-47.0) % MCV 77.7 L (81-99) fl Plt Count 314 (130-400) 10^3/cmm Neut % (Auto) 76.4 % Neut # (Auto) 7.88 H (1.8-7.7) 10^3/uL Cardiac Studies: No Data to Display
--- NOTE | 2022-06-18 05:53 | ANES.PROC ---
Anesthesia Procedures Procedure/Date: 06/18/22 Epidural: Time Out Performed: Yes Consents Signed: Procedure Consent Consent: requested by attending/covering physician, from patient, risks and benefits reviewed and patient agrees to proceed Lumbar Level: L3-L4 Epidural position: sitting Epidural procedure: sterile prep of area (betadine), 1% lidocaine to numb the area (3ml), 18 g needle, negative for paresthesia passed, test dose given, 1.5% xylocaine 1:200k epi (3/2), 0.2% Ropivacaine bolus ml (5ml), placed PCEA, no systemic response, sterile dressing applied, L.U.D. no apparent complications and 0.2% Ropiavacaine @ mls/hr (13ml/hr)
[2022-06-18] MEDS: dextrose 5%-lactated ringers 1,000 ML 125 ML IV (06:01)
--- NOTE | 2022-06-18 07:03 | P.HPUD_ITS ---
Labor & Delivery H&P Update Date of Procedure: June 18, 2022 Date H&P Performed: 06/17/22 Changes to previous documentation: Consistent contractions with her cervix dilated to 5 cm. Admission Diagnosis: 31-year-old 5 para 3-0-1-3 at 38 weeks estimated gestational age presenting in active labor. Preop diagnosis: IUP Planned procedure: Spontaneous vaginal delivery Other information: The patient was seen in my office yesterday. At that time her membranes were stripped. She is and had some contractions during the night and arrived to the hospital this morning complaining of consistent contractions that are becoming increasingly more painful. Upon evaluation, she was found to be having contractions less than every 5 minutes and found to have a cervix that was 4 cm dilated and 75% effaced. The patient has had an unremarkable . Her labs of also been unremarkable. Her blood type is O+. Her antibody screen was negative. She failed her initial glucose screen, but passed her 3- hour glucose screen. She is rubella immune. She is GBS negative. The r emainder of her infectious disease profile is within normal limits.
--- NOTE | 2022-06-18 10:18 | P.HP_ITS ---
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 We had a discussion earlier in her about the risks and alternatives of a tubal ligation. After the baby was delivered she once again reiterated her desire for a tubal ligation. The delivery of her baby was unremarkable, and there are no contraindications to having a tubal ligation. Present Details : 5 Para: 3 Review of Systems General: Reports: 10 or more systems reviewed and unremarkable except in HPI and below Const: Reports: fatigue; Denies: fever(s) Eyes: Denies: change in vision Card: Denies: chest pain Musc: Reports: back pain Jack/Lymph: Denies: easy bruising Medications/Allergies Home Medications Medication Instructions Recorded Confirmed Last Taken Type escitalopram oxalate 20 mg tablet 20 mg PO DAILY 05/30/22 06/18/22 06/17/22 15:00 History (Lexapro) Allergies Allergy/AdvReac Type Severity Reaction Status Date / Time No Known Allergies Allergy Verified 05/30/22 19:26 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: Medical History No pertinent family history No pertinent past medical history Vitals/I&O/Wt Last Vital Signs Temp 96.6 F L 06/18/22 04:03 Pulse 99 06/18/22 10:15 Resp 16 06/18/22 06:45 BP 127/70 06/18/22 10:14 Pulse Ox 97 06/18/22 10:15 O2 Del Method 06/18/22 07:15 06/17/22 06/18/22 06/18/22 22:59 06:59 14:59 Intake Total 432.9 / 432.9 Output Total 100 / 100 Balance 332.9 / 332.9 Weight last 48 hrs Weight 275 lb Physical Exam Const: COMMON NORMALS: patient oriented x3 and alert HENMT: COMMON NORMALS: moist oral mucous membranes HEAD & SCALP: normal to inspection Chest: COMMONS NORMALS: normal inspection of the chest Resp: COMMON NORMALS: clear to auscultation bilaterally AUSCULTATION: clear to auscultation bilaterally Cardio: COMMON NORMALS: regular rate and regular rhythm RATE: regular rate RHYTHM: regular rhythm GI: INSPECTION: Yes normal to inspection Extremity: COMMON NORMALS: normal to inspection GENERAL: Yes edema (Trace) Neuro: COMMON NORMALS: patient oriented x3, moves all extremities and no sensory deficits noted SENSORIUM/ORIENTATION: Yes alert Psych: COMMON NORMALS: mental status grossly normal Skin: COMMON NORMALS: no rashes or lesions noted GENERAL SKIN EXAM: no rashes or lesions noted Urinary Catheter Management: Brumfield Latex: Cath Placed During This Visit: yes Reason for Continuing Indwelling Catheter: Required Immobilization for Trauma or Surgery or Anesthesia Urinary Catheter Date of Insertion: 06/18/22 Urinary Catheter Time of Insertion: 06:29 Data 06/18/22 04:13 A&P Assessment and plan (1) Spontaneous vaginal delivery: (2) Sterilization consult: We discussed the risks and alternatives to a bilateral tubal ligation. We discussed the risks of bleeding, infection, and damage to intra-abdominal organs. We also discussed a 1-200 chance of becoming again. She also understands there is an increased risk of an ectopic . She and her partner have no further questions and she wishes to proceed. (3) 38 weeks gestation of : Attestations Medical Necessity Statement*: Routine and post tubal ligation care. I anticipate she will be discharged home later in the day after her tubal ligation Coding Level of Care Code Acute Lead Former for Chg Fwd Exam Comprehensive Diagnoses Spontaneous vaginal delivery O80 Sterilization consult Z30.09 38 weeks gestation of Z3A.38
--- NOTE | 2022-06-18 10:20 | P.PCNOB_ITS ---
Delivery Note: Date of delivery: June 18, 2022 Pre-delivery diagnoses: 1. 31-year-old 3 para 2-0-0-2 at 38 weeks estimated gestational age in active labor Post-delivery diagnoses: Status post spontaneous vaginal delivery Procedure: Spontaneous vaginal delivery Delivering Physician: Rome Garcia Estimated blood loss (mL): 75 Pre-Delivery Course: Patient presented to the hospital in active labor. An epidural was placed. An amniotomy was performed. She progressed to complete without difficulty. Delivery: DELIVERY: The patient progressed to complete without difficulty. She delivered a female with a weight of 7 pounds 10 ounces with Apgars of 9, 9. The baby was delivered from the MIL positionand placed on the mother's abdomen where her mouth and nose were suctioned. The cord was then clamped and cut. There was a nuchal cord x2 which was reduced prior to delivering the body without difficulty. There was no meconium. The placenta and 3 vessel cord were delivered intact shortly thereafter. The perineum and vaginal vault were carefully examined. A posterior midline first-degree tear was noted that extended onto the perineum. A single subcuticular stitch was placed. Both the mother and the baby were in stable condition. Post-Delivery Status: Good A&P Assessment and plan (1) 38 weeks gestation of : (2) Spontaneous vaginal delivery: I anticipate routine care. The patient does desire a tubal ligation and that should be performed tomorrow morning at 7:00. 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
[2022-06-18] MEDS: HYDROcodone-acetaminophen 5-325 mg Tablet PO ×2 (12:23→19:27)
[2022-06-18] MEDS: lanolin oint 7 gm 1 APPLIC TOPICAL (12:23)
[2022-06-18] MEDS: benzocaine-menthol 78 gm Canister 1 SPRAY TOPICAL (12:25)
[2022-06-18] MEDS: escitalopram 10 mg Tablet 20 MG PO (12:49)
[2022-06-18] MEDS: ibuprofen 800 mg tablet PO ×2 (14:38→21:14)
[2022-06-18] MEDS: docusate sodium 100 mg Capsule PO (19:28)
[2022-06-18 22:58] LABS: Hematocrit 28.7 % (37.0-47.0); Hemoglobin 8.9 g/dL (11.5-15.3); Mean Corpuscular Hemoglobin 24.1 pg (28.0-34.0); Mean Corpuscular Volume 77.8 fl (81-99); Mean Platelet Volume 11.5 fL (7.4-10.4); Platelet Count 277 10^3/cmm (130-400); Red Blood Count 3.69 10^6/uL (4.1-5.3); Red Cell Distribution Width 15.1 % (12.1-15.1); White Blood Count 10.9 10^3/uL (4.0-10.0)
[2022-06-19] VITALS (10 sets, daily range): BP systolic 113–132; BP diastolic 61–88; PULSE 72–90; RESP 15–16; TEMP 36.6; O2SAT 97–99
[2022-06-19] MEDS: lactated ringers 1,000 ML 999 ML IV (06:06)
[2022-06-19] MEDS: metoclopramide 5 mg/mL SDV 2 mL 10 MG IVP (06:43)
[2022-06-19] MEDS: famotidine 20 mg/2 mL INJ IVP (06:43)
[2022-06-19] MEDS: citric acid-sodium citrate 30 mL UDC PO (06:43)
--- NOTE | 2022-06-19 06:55 | P.ANESUD_ITS ---
Pre-Anesthetic Update Pre-Anesthetic Assessment: Date of Surgery/Procedure: 06/19/22 Preop Sita gnosis: IUP Proposed Procedure: Operation Date: 06/19/22 07:00 Proposed Procedures p Post Bilateral Tubal Ligation(Bilateral) - Rome Garcia MD Any changes to Pre-Anesthetic Assessment?: No Last Intake: NPO after midnight Labs Last 48hrs: Short CBC 06/18/22 06/18/22 Range/Units 04:13 22:46 WBC 10.3 H 10.9 H (4.0-10.0) 10^3/ uL Hgb 10.0 L 8.9 L (11.5-15.3) g/dL Hct 32.0 L 28.7 L (37.0-47.0) % MCV 77.7 L 77.8 L (81-99) fl Plt Count 314 277 (130-400) 10^3/c mm Neut % (Auto) 76.4 % Neut # (Auto) 7.88 H (1.8-7.7) 10^3/u L Vitals: Temperature 97.9 F 06/19/22 04:37 Temperature Source Oral 06/19/22 04:37 Pulse Rate 75 06/19/22 04:37 Pulse Rhythm 06/18/22 03:38 Pulse Strength 3+ Normal 06/18/22 03:38 Respiratory Rate 16 06/19/22 04:37 Respiratory Effort Non-Labored 06/18/22 03:38 Respiratory Depth Normal 06/18/22 03:38 Respiratory Patter n 06/18/22 03:38 Blood Pressure 132/81 06/19/22 04:37 Blood Pressure Jennifer n 98 06/19/22 04:37 Blood Pressure Pos ition Semi Fowlers 06/19/22 04:37 Pulse Oximetry 98 06/18/22 18:30 Oxygen Delivery Me thod 06/18/22 18:30 Exam: Pre-Anes Outpt Exam: alert and oriented x 3 Cardiac Studies: No Data to Display
--- NOTE | 2022-06-19 08:01 | PM.OP ---
Operative Report Date of procedure: June 19, 2022 Pre-op diagnosis: female desiring sterilization Post-op diagnosis: Same Procedure done: minilaparotomy bilateral tubal ligation using a modified Merry technique Specimens removed/disposition: Bilateral fallopian tube segments with the right segment being tagged Pathology: Bilateral fallopian tube segments with the right segment being tagged Surgeon: Rome Garcia Anesthesia: Other (Spinal) Estimated blood loss: 5 mL Procedure: The patient was brought back to the operating room where anesthesia was found to be adequate. 10 mL of 0.5% bupivacaine was then used to pre-anesthetize the area just inferior to the umbilicus. A #15 blade was then used to make a 3 cm transverse incision just inferior to the umbilicus. I then dissected down to the underlying subcutaneous tissue until arriving at the fascia. The fascia was then nicked with the scalpel. The fascial incision was extended manually. I identified the fundus of the uterus and followed it to the left fallopian tube. The fallopian tube was then followed to the fimbria. The tube was then ligated, cut, and cauterized in a modified Merry fashion using 0 chromic. The right fallopian tube was then identified and followed through to the fimbria. It was ligated, cut, and cauterized in similar fashion. The right fallopian tube was tagged. Both fallopian tubes had excellent hemostasis. The fascia was reapproximated using 0 Vicryl in running stitch. The subcutaneous tissue was carefully examined and no further bleeding was noted. The skin was then reapproximated using 4-0 Vicryl in a running subcuticular stitch. A sterile dressing was placed. All counts were correct x2. The patient was moved to the recovery room in stable condition.
--- NOTE | 2022-06-19 08:05 | PM.OBGYDC ---
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 She had an unremarkable labor and progressed to complete and had an unremarkable delivery. Please see delivery note for more details. Her course was unremarkable. Her bleeding was within normal limits. Her pain was well controlled. She breast-fed well. She did have a tubal ligation which was also unremarkable. Information Peripartum Data: Delivery Method: Vaginal Physical Exam Narrative: The patient is alert. She appears comfortable. Her heart has a regular rate and rhythm with no murmurs appreciated. Lungs are clear to auscultation bilaterally. Her fundus is firm and below the umbilicus. Infraumbilical incision dressing was clean and intact Urinary Catheter Management: Brumfield Latex: Cath Placed During This Visit: yes, but has since been removed by the nurse Reason for Continuing Indwelling Catheter: Required Immobilization for Trauma or Surgery or Anesthesia Urinary Catheter Date of Insertion: 06/18/22 Urinary Catheter Time of Insertion: 06:29 Date Urinary Catheter Removed: 06/18/22 Time Urinary Catheter Discontinued: 09:30 Discharge Data Studies Completed and Pending Laboratory Results WBC 10.9 10^3/uL (4.0-10.0) H 06/18/22 22:46 RBC 3.69 10^6/uL (4.1-5.3) L 06/18/22 22:46 Hgb 8.9 g/dL (11.5-15.3) L 06/18/22 22:46 Hct 28.7 % (37.0-47.0) L 06/18/22 22:46 MCV 77.8 fl (81-99) L 06/18/22 22:46 MCH 24.1 pg (28.0-34.0) L 06/18/22 22:46 MCHC 31.0 g/dL (30.0-36.0) 06/18/22 22:46 RDW 15.1 % (12.1-15.1) 12/13/22 22:46 Plt Count 277 10^3/cmm (130-400) 06/18/22 22:46 MPV 11.5 fL (7.4-10.4) H 06/18/22 22:46 Neut % (Auto) 76.4 % 06/18/22 04:13 Lymph % (Auto) 16.9 % 06/18/22 04:13 [place] % (Auto) 5.8 % 06/18/22 04:13 Eos % (Auto) 0.3 % 06/18/22 04:13 Baso % (Auto) 0.2 % 06/18/22 04:13 Neut # (Auto) 7.88 10^3/uL (1.8-7.7) H 06/18/22 04:13 Lymph # (Auto) 1.7 10^3/uL (0.8-4.8) 06/18/22 04:13 [place] # (Auto) 0.6 10^3/uL (0.2-0.9) 06/18/22 04:13 Eos # (Auto) 0.0 10^3/uL (0.0-0.8) 06/18/22 04:13 Baso # (Auto) 0.0 10^3/uL (0.0-0.1) 06/18/22 04:13 Nucleated RBC % (auto) 0 % 06/18/22 04:13 Nucleated RBCs # 0.0 /100WBC 06/18/22 04:13 Vitals Last Vital Signs Temp 97.9 F 06/19/22 04:37 Pulse 75 06/19/22 04:37 Resp 16 06/19/22 04:37 BP 132/81 06/19/22 04:37 Pulse Ox 98 06/18/22 18:30 O2 Del Method 06/18/22 18:30 Discharge Plan Discharge Patient Disposition: Home Condition: Stable Prescriptions: New ibuprofen 800 mg Tablet 800 mg PO TID Qty: 45 0RF hydrocodone-acetaminophen 5-325 mg Tablet 1 tab PO Q6H PRN (Reason: Moderate To Severe Pain) Qty: 10 0RF Continued escitalopram oxalate [Lexapro] 20 mg Tablet 20 mg PO DAILY Discharge Orders: Discharge Order (Routine); Ordered 06/19/22 Ordered By: Rome Garcia Referrals: Rome Garcia MD [Physician] - 7-10 days Discharge Diet: Usual diet Discharge Activity: Limit activity as instructed Patient Instructions: Opioid Safety 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
[2022-06-19] MEDS: prenatal vitamin Capsule 1 CAP PO (08:09)
[2022-06-19] MEDS: ibuprofen 800 mg tablet PO (08:09)
[2022-06-19] MEDS: HYDROcodone-acetaminophen 5-325 mg Tablet PO (08:09)
[2022-06-19] MEDS: docusate sodium 100 mg Capsule PO (08:09)
--- NOTE | 2022-06-19 08:14 | PC.NURSE ---
Patient ambulated to OR, room time 0700
--- NOTE | 2022-06-19 09:00 | ANE.PACU2 ---
Inpatient post-anesthesia follow up: Airway intact: Yes Vital signs: Temperature 97.9 F Pulse Rate 89 Respiratory Rate 16 Blood Pressure 122/88 Pulse Oximetry 97 Oxygen Delivery Me thod Room Air Oxygen Flow Rate Fraction of Inspir ed Oxygen Hydration adequate: Yes Nausea and vomiting: No Pain level: 1 Mental status: Baseline
== END 2022-06-19 13:37 | disposition home or self-care (01) | DRG 798 ==
LOC: OPOB 09:03 → OBGYN 09:03
PROVIDERS: Admitting Provider Family Medicine; Visit Provider Family Medicine
PROC: 0UB70ZZ Excision of Bilateral Fallopian Tubes, Open Approach (ICD-10-PCS; CPT 58605; principal; 2022-06-19 07:00)
DX: O69.2XX0 Labor and delivery complicated by other cord entanglement, with compression, not applicable or unspecified (principal); Z37.0 Single live birth; O70.0 First degree perineal laceration during delivery; Z3A.38 38 weeks gestation of pregnancy; Z30.2 Encounter for sterilization
CPT/HCPCS: 12345; 36415; 51702; 59025; 59409; 85025; 85027; 88302; 96374; 98960; 99211; J2250; J2270; J2405; J2765; J2795; J3010; J3490; J7120; J7121

== ENCOUNTER 2024-04-18 10:18 | Emergency (ER) | payer MEDICAID, SELFPAY ==
[2024-04-18 10:40] VITALS: BP 130/95; PULSE 90; RESP 20; TEMP 36.8; O2SAT 96; BMI 39.9
[2024-04-18 10:56] LABS: Basophils % 0.5 %; Eosinophils # 0.1 10^3/uL (0.0-0.8); Hematocrit 38.1 % (36-47); Lymphocytes # 1.7 10^3/uL (0.8-4.8); Lymphocytes % 29.6 %; Mean Corpuscular HGB Conc 32.3 g/dL (30-55); Mean Corpuscular Hemoglobin 28.5 pg (27-33); Mean Corpuscular Volume 88.2 fl (85-98); Monocytes # 0.5 10^3/uL (0.2-0.9); Neutrophils # 3.51 10^3/uL (1.8-7.7); Neutrophils % 59.7 %; Nucleated Red Blood Cells % 0 %; Platelet Count 306 10^3/cmm (157-399); Red Blood Count 4.32 10^6/uL (3.85-5.65); Red Cell Distribution Width 14.5 % (12.1-15.1); White Blood Count 5.88 10^3/uL (3.29-11.43)
--- NOTE | 2024-04-18 11:00 | ED_ITS ---
HPI - Abdominal Pain 2 General: Chief Complaint: Abdominal Pain Stated Complaint: left abdominal pain Time Seen by Provider: 04/18/24 10:30 History of Present Illness: Presents to the ER with complaint of left-sided abdominal pain off and on for a month. Patient states that this pain is intermittent only for few seconds at a time. He is sharp and stabbing when it comes and nothing makes it come on or nothing makes it go away. This comes and goes as its own. Patient denies any nausea vomiting diarrhea constipation pain burning frequency with urination. This pain has worsened over the last 2 to 3 days and becoming more frequent. Related Data Home Medications Medication Instructions Recorded Confirmed escitalopram oxalate 20 mg tablet 20 mg PO DAILY 05/30/22 12/17/23 (Lexapro) phentermine 15 mg capsule 15 mg PO DAILY 12/17/23 12/17/23 Previous Rx's Medication Instructions Recorded cyclobenzaprine 10 mg tablet 10 mg PO BEDTIME PRN muscle spasm 12/17/23 #10 tabs prednisone 10 mg tablet 30 mg (3 x 10 mg) PO DAILY #15 tabs 12/17/23 Allergies Allergy/AdvReac Type Severity Reaction Status Date / Time No Known Allergies Allergy Verified 04/18/24 10:44 Review of Systems 2 General: Reports: 10 or more systems reviewed and unremarkable except in HPI and below PFSH ED 2 PFSH: Medical History No pertinent past medical history No pertinent family history Physical Exam 2 HENMT: COMMON NORMALS: normocephalic, atraumatic, hearing grossly normal bilaterally, external ears normal, Normal external nose present and moist oral mucous membranes HEAD & SCALP: normocephalic and atraumatic NOSE: Normal external nose present EXTERNAL EAR: Yes external ears normal Neck/C-Spine: COMMON NORMALS: full ROM, no lymphadenopathy, supple, no meningeal signs, no JVD and Thyroid normal THYROID: Thyroid normal Chest: COMMONS NORMALS: normal inspection of the chest and normal palpation of entire chest wall Resp: COMMON NORMALS: normal respiratory effort, No retractions, No use of accessory muscles and clear to auscultation bilaterally AUSCULTATION: clear to auscultation bilaterally Cardio: COMMON NORMALS: no JVD, regular rate, regular rhythm, S1 normal heart sound present, S2 normal heart sound present, No gallops present (Cardio), No clicks present (Cardio), No murmurs present (Cardio) and No rub (Cardio) R ATE: regular rate RHYTHM: regular rhythm HEART SOUNDS: S1 normal heart sound present and S2 normal heart sound present GI: COMMON NORMALS: Normal to inspection, nondistended, normoactive bowel sounds present, Soft to palpation, non-tender, No hepatosplenomegaly present and no masses PALPATION: Yes Soft to palpation and Yes No hepatosplenomegaly present Neuro: MENINGEAL SIGNS: Yes no meningeal signs Course 2 Vital Signs: Vital signs: Vital Signs Temperature 98.3 F 04/18/24 10:40 Pulse Rate 90 04/18/24 10:40 Respiratory Rate 20 H 04/18/24 10:40 Blood Pressure 130/95 04/18/24 10:40 Pulse Oximetry 96 04/18/24 10:40 Oxygen Delivery Me thod Room Air 04/18/24 10:40 MDM - Abdominal Pain Medical Decision Making Patient presented with sharp stabbing intermittent abdominal pain. Patient had CBC CMP urinalysis and lipase all performed and was all essentially benign. Patient was not having pain during her stay in the ER. Patient will be discharged and referred back to her PCP for further evaluation testing. Medical Records I reviewed the patient's medical records. Lab Data I reviewed the patient's lab results. 04/18/24 10:47 04/18/24 10:47 Labs/Radiology: Laboratory Results WBC 5.88 10^3/uL (3.29-11.43) 04/18/24 10:47 RBC 4.32 10^6/uL (3.85-5.65) 04/18/24 10:47 Hgb 12.30 g/dL (11.27-16.99) 04/18/24 10:47 Hct 38.1 % (36-47) 04/18/24 10:47 MCV 88.2 fl (85-98) 04/18/24 10:47 MCH 28.5 pg (27-33) 04/18/24 10:47 MCHC 32.3 g/dL (30-55) 04/18/24 10:47 RDW 14.5 % (12.1-15.1) 04/18/24 10:47 Plt Count 306 10^3/cmm (157-399) 04/18/24 10:47 MPV 10.0 fL (7.4-10.4) 04/18/24 10:47 Neut % (Auto) 59.7 % 04/18/24 10:47 Lymph % (Auto) 29.6 % 04/18/24 10:47 [place] % (Auto) 9.0 % 04/18/24 10:47 Eos % (Auto) 1.0 % 04/18/24 10:47 Baso % (Auto) 0.5 % 04/18/24 10:47 Neut # (Auto) 3.51 10^3/uL (1.8-7.7) 04/18/24 10:47 Lymph # (Auto) 1.7 10^3/uL (0.8-4.8) 04/18/24 10:47 [place] # (Auto) 0.5 10^3/uL (0.2-0.9) 04/18/24 10:47 Eos # (Auto) 0.1 10^3/uL (0.0-0.8) 04/18/24 10:47 Baso # (Auto) 0.0 10^3/uL (0.0-0.1) 04/18/24 10:47 Nucleated RBC % (auto) 0 % 04/18/24 10:47 Nucleated RBCs # 0.0 /100WBC 04/18/24 10:47 Sodium 139 mmol/L (136-145) 04/18/24 10:47 Potassium 4.4 mmol/L (3.5-5.1) 04/18/24 10:47 Chloride 106 mmol/L (98-107) 04/18/24 10:47 Carbon Dioxide 25 mmol/L (22-29) 04/18/24 10:47 Anion Gap 12.4 (5-19) 04/18/24 10:47 BUN 10 mg/dL (6-20) 04/18/24 10:47 Creatinine 0.8 mg/dL (0.5-0.9) 04/18/24 10:47 GFR Calculation 83.1 mL/min (90-130) L 04/18/24 10:47 Glucose 93 mg/dL (65-115) 04/18/24 10:47 Calculated Osmolality 287 mOsm/kg (285-295) 04/18/24 10:47 Calcium 8.2 mg/dL (8.5-10.5) L 04/18/24 10:47 Total Bilirubin 0.3 mg/dL (0.15-1.2) 04/18/24 10:47 AST 20 U/L (0-32) 04/18/24 10:47 ALT 14 U/L (0-33) 04/18/24 10:47 Alkaline Phosphatase 59 U/L (35-105) 04/18/24 10:47 Total Protein 6.4 g/dL (6.6-8.7) L 04/18/24 10:47 Albumin 3.7 g/dL (3.5-5.2) 04/18/24 10:47 Globulin 2.7 g/dL (1.3-4.6) 04/18/24 10:47 Lipase 54 U/L (13-60) 04/18/24 10:47 HCG, Qual Negative (Negative) 04/18/24 10:50 Urine Color Yellow (Yellow) 04/18/24 10:50 Urine Appearance Clear (CLEAR) 04/18/24 10:50 Urine pH 7.5 (5-7) 04/18/24 10:50 Ur Specific [place] 1.014 (1.005-1.030) 04/18/24 10:50 Urine Protein Negative (Negative) 04/18/24 10:50 Urine Glucose (UA) Negative (Normal) 04/18/24 10:50 Urine Ketones Negative (Negative) 04/18/24 10:50 Urine Blood Negative (Negative) 04/18/24 10:50 Urine Nitrate Negative (Negative) 04/18/24 10:50 Urine Bilirubin Negative (Negative) 04/18/24 10:50 Urine Urobilinogen 1.0 mg/dL (Negative) 04/18/24 10:50 Ur Leukocyte Esterase Negative (Negative) 04/18/24 10:50 Urine RBC 0-2 /hpf (0-2) 04/18/24 10:50 Urine WBC 0-5 /hpf (0-5) 04/18/24 10:50 Ur Squamous Epith Cells 6-10 /hpf (0-5) 04/18/24 10:50 Amorphous Sediment Not Reportable 04/18/24 10:50 Urine Bacteria None seen /hpf (NONE) 04/18/24 10:50 Hyaline Casts 0.40 /lpf 04/18/24 10:50 No radiology studies performed this visit Discharge Plan Discharge Patient Disposition: Home Clinical Impression: Abdominal pain Qualifiers: Abdominal location: unspecified location Qualified Code(s): R10.9 - Unspecified abdominal pain Condition: Stable Prescriptions: No Action phentermine 15 mg capsule 15 mg PO DAILY Rx Instructions: must administer 2 hours after breakfast cyclobenzaprine 10 mg tablet 10 mg PO BEDTIME PRN (Reason: muscle spasm) Qty: 10 0RF prednisone 10 mg tablet 30 mg PO DAILY Qty: 15 0RF escitalopram oxalate [Lexapro] 20 mg Tablet 20 mg PO DAILY Discharge Orders: Discharge ED (Routine); Ordered 04/18/24 Ordered By: Ramone Ruelas Referrals: Tyrese Avila MD [Primary Care Provider] - 1 week Patient Instructions: Abdominal Pain (ED) Activity Restrictions/Additional Instructions: Your evaluation ER included physical exam, blood work, and urinalysis, did not show any acute cause of your abdominal pain. Physician within next 7 to 10 days for further evaluation and treatment. Thank you for choosing [facility] for your healthcare needs today. Please realize that you were seen in the emergency department and that we are providing you with an emergency medical screening exam and this may not be a complete and all exclusive of all testing and/or medical workup we may need to determine your element or severity of your illness. It is very important that you follow-up as instructed with your primary care provider or specialist for the additional evaluation and to discuss your medical treatment plan. You may return to the emergency department should you have concerns or if your condition changes or worsens in any way. Coding Level of Care Code ED Brusher Hand for Kamille Lamas
[2024-04-18 11:03] LABS: Bilirubin Urine Negative (Negative); Blood Urine Negative (Negative); Glucose Urine UA Negative (Normal); Ketones Urine Negative (Negative); Leukocyte Esterase Urine Negative (Negative); Nitrate Urine Negative (Negative); Protein Urine Negative (Negative); Specific Gravity, Urine 1.014 (1.005-1.030); Urine Appearance Clear (CLEAR); Urine Color Yellow (Yellow); pH Urine 7.5 (5-7)
[2024-04-18 11:04] LABS: HCG Qualitative Urine. Negative (Negative)
[2024-04-18 11:05] LABS: Add Urine Microscopic? YES; Bacteria Urine None Seen /hpf; RBC Urine 0-2 /hpf (0-2); WBC Urine 0-5 /hpf (0-5)
[2024-04-18 11:16] LABS: Alanine Aminotransferase 14 U/L (0-33); Albumin Level 3.7 g/dL (3.5-5.2); Alkaline Phosphatase 59 U/L (35-105); Anion Gap 12.4 (5-19); Aspartate Amino Transferase 20 U/L (0-32); Blood Urea Nitrogen 10 mg/dL (6-20); Calcium 8.2 mg/dL (8.5-10.5); Carbon Dioxide 25 mmol/L (22-29); Chloride 106 mmol/L (98-107); Creatinine Clr Calc Pharmacy 128.1292; Globulin 2.7 g/dL (1.3-4.6); Glomerular Filtration Rate 83.1 mL/min (90-130); Glucose 93 mg/dL (65-115); Lipase 54 U/L (13-60); Osmolality Calculated 287 mOsm/kg (285-295); Potassium 4.4 mmol/L (3.5-5.1); Sodium 139 mmol/L (136-145); Total Bilirubin 0.3 mg/dL (0.15-1.2); Total Protein 6.4 g/dL (6.6-8.7)
--- NOTE | 2024-04-18 11:57 | CTR_ITS ---
PROCEDURE INFORMATION: Exam: CT Abdomen And Pelvis With Contrast Exam date and time: 04/18/2024 12:02 PM Age: 33 years old Clinical indication: Abdominal pain; Generalized; Additional info: [place] TECHNIQUE: Imaging protocol: Computed tomography of the abdomen and pelvis with contrast. Axial, coronal and sagittal reformatted images were created and reviewed. Radiation optimization: All CT scans at this facility use at least one of these dose optimization techniques: automated exposure control; mA and/or kV adjustment per patient size (includes targeted exams where dose is matched to clinical indication); or iterative reconstruction. Contrast material: OMNIPAQUE 350; Contrast volume: 100 ml; Contrast route: INTRAVENOUS (IV); COMPARISON: US OB >= 14 weeks fetus [id number] 02/26/2022 12:19 PM RADIATION DOSE METRICS: Total DLP (mGy-cm): 996.08 FINDINGS: Liver: Unremarkable. Gallbladder and biliary ducts: No radiodense gallstones. No biliary ductal dilatation. Pancreas: Unremarkable. Spleen: Mild splenomegaly. Adrenal glands: Normal. No mass. Kidneys and ureters: No mass. No radiodense calculi. No hydronephrosis. Stomach and bowel: No bowel wall thickening. No obstruction. No pneumatosis. Appendix: Normal. Intraperitoneal space: No free fluid. No organized fluid collection. No free air. Vasculature: Unremarkable. No aneurysm. Lymph nodes: No pathologically enlarged lymph nodes. Urinary bladder: Mild circumferential urinary bladder wall thickening, likely secondary to underdistention. Reproductive: Unremarkable. Bones/joints: No acute osseous abnormality. Mild degenerative changes. Soft tissues: Tiny, fat containing umbilical hernia. CT/CT abdomen pelvis w con* [id number]: 1[address] No CT evidence of acute intra-abdominal or pelvic pathology. 2. Additional findings, as above.
[2024-04-18] MEDS: iohexol 350 mg/mL 500 mL Btl (per mL) IV (12:06)
[2024-04-18 13:24] VITALS: BP 122/67; PULSE 69; RESP 16; O2SAT 97
== END 2024-04-18 13:27 | disposition home or self-care (01) ==
PROVIDERS: Emergency Provider Emergency Medicine; PCP Family Medicine
DX: R10.9 Unspecified abdominal pain (principal)
CPT/HCPCS: 74177; 80053; 81001; 81025; 83690; 85025; 99285